=== PATIENT | male | born 1990 | race Caucasian/White ===

== ENCOUNTER → 2020-05-11 | Outpatient (CLI) | payer OTHER ==
[~2020-05-11] MED LIST: IBU800 MG PO; IBUPROFEN600 MG PO; NORCO 7.5-3251 EACH PO; VITAMIN C500 M1 PO; VITAMIN D10000 UNIT PO; ZYRTEC10 MG PO
== END ==
LOC: KOH-I 10:46
DX: S92.351D Displaced fracture of fifth metatarsal bone, right foot, subsequent encounter for fracture with routine healing (principal); X58.XXXD Exposure to other specified factors, subsequent encounter
CPT/HCPCS: 73630

== ENCOUNTER → 2021-04-19 | Outpatient (CLI) | payer OTHER | LOC: KOH-I 15:15 | DX: S92.351D Displaced fracture of fifth metatarsal bone, right foot, subsequent encounter for fracture with routine healing (principal) | CPT/HCPCS: 73630 ==

== ENCOUNTER → 2021-09-02 | Outpatient (CLI) | payer OTHER | LOC: KOH-I 15:49 | DX: Z53.9 Procedure and treatment not carried out, unspecified reason (principal) | CPT/HCPCS: 73630 ==